=== PATIENT | female | born 1990 ===

== ENCOUNTER → 2018-02-28 | Outpatient (CLI) | payer SELFPAY ==
[2018-02-28 11:29] LABS: PLATELET COUNT, AUTOMATED 255 K/uL (150-450)
== END ==
LOC: LAB 08:19
PROVIDERS: ATTEND Obstetrics & Gynecology
DX: Z34.92 Encounter for supervision of normal pregnancy, unspecified, second trimester (principal)
CPT/HCPCS: 36415; 81001; 85025; 86592; 86703; 86762; 86850; 86900; 86901; 87088; 87340

== ENCOUNTER → 2018-03-27 | Outpatient (CLI) | payer SELFPAY ==
[~2018-03-27] MED LIST: FLU60VIA41 IM; PREN-127 PO
== END ==
LOC: LAB 08:58
PROVIDERS: ATTEND Student in an Organized Health Care Education/Training Program
DX: Z34.92 Encounter for supervision of normal pregnancy, unspecified, second trimester (principal); N89.8 Other specified noninflammatory disorders of vagina
CPT/HCPCS: 36415; 81511; 87210; 87491; 87591

== ENCOUNTER → 2018-04-24 | Outpatient (CLI) | payer MEDICAID ==
--- NOTE | 2018-04-24 14:31 | RADIOLOGY IMAGING REPORT ---
[place] [facility] [place] NAME: Derik Mcdaniel : 1990 MR: [id number] V: [id number] EXAM DATE: ORDERING PHYSICIAN: SAHMEKA PORTER TECHNOLOGIST: Location: [facility] Patient: Derik Mcdaniel : 1990 Visit/Account:[id number] Date of Sevice: 04/24/2018 [facility] OB ANATOMICAL SURVEY HISTORY: 20 weeks survey COMPARISON: None. TECHNIQUE: Transabdominal imaging was performed for assessment of the fetus and maternal pelvic s tructures. Transvaginal imaging was not performed. FINDINGS: Intrauterine gestations: One. presentation: Variable. heart rate: 142 bpm. Amniotic fluid volume: Normal; ESTRELLITA 13.9 cm; MVP 3.85 cm. Placenta: Anterior. Uterus: Gravid, otherwise grossly unremarkable where visualized. Maternal adnexa/ovaries: Grossly unremarkable, ovaries not visualized. Cervix: Grossly long and closed. Gestational Parameters: BPD: 5.32 cm, less than 2nd percentile HC: 21.58 cm, less than 2nd percentile AC: 19.85 cm, 16th percentile FL: 4.24 cm, 5th percentile Average ultrasound age (AUA): 23 weeks/ five days Estimated age based on LMP: 25 weeks/ three days Estimated weight (EFW): 656 grams +/- 96 grams, 4th percentile Anatomic Survey: Intracranial structures, 4-chamber heart, stomach,, urinary bladder, 3-vessel cord and cord insertion are unremarkable. Two upper and two lower extremities visualized. The spine, aortic arch and kidneys were not ideally visualized. The patient is to return in one week for additional imaging IMPRESSION: Single viable fetus in variable presentation with an estimated gestational age by measurements of 23 weeks and five days. Estimated gestational age by last menstrual period is 25 weeks and three days The patient is to return in one week for additional imaging to evaluate anatomy which was not w ell-seen today The BPD and head circumference are less than 2nd percentile Report Dictated By: Anna Bullard MD at 04/24/2018 2:22 PM Report E-Signed By: Anna Bullard MD at 04/24/2018 2:27 PM WSN:[id number]
== END ==
LOC: RAD 08:56
PROVIDERS: ATTEND Student in an Organized Health Care Education/Training Program
DX: Z02.9 Encounter for administrative examinations, unspecified (principal)

== ENCOUNTER → 2018-06-09 | Outpatient (CLI) | payer MEDICAID ==
[~2018-06-09] MED LIST changes: +DIPH0.5D12 IM
== END ==
LOC: RAD 09:35
PROVIDERS: ATTEND Student in an Organized Health Care Education/Training Program
DX: Z02.9 Encounter for administrative examinations, unspecified (principal)

== ENCOUNTER → 2018-06-12 | Outpatient (CLI) | payer MEDICAID ==
[2018-06-12 11:51] LABS: PLATELET COUNT, AUTOMATED 205 K/uL (150-450)
== END ==
LOC: LAB 10:27
PROVIDERS: ATTEND Student in an Organized Health Care Education/Training Program
DX: Z34.92 Encounter for supervision of normal pregnancy, unspecified, second trimester (principal)
CPT/HCPCS: 36415; 82950; 85025